=== PATIENT | male | born 1965 | race African-American/Black ===

== ENCOUNTER 2021-08-18 09:04 | Inpatient (IN) | payer SELFPAY ==
[~2021-08-18] VITALS: Ht 172.7 cm; Wt 151.6 kg
[2021-08-18 10:14] LABS: HEMOGLOBIN 12.2 g/dl (13.5-18.0); MEAN CELL VOLUME 87 fl (80.0-100.0); MEAN CORPUSCULAR HEMOGLOBIN 29 pg (27-31); MEAN CORPUSCULAR HGB CONC 33 g/dl (33.0-37.0); MEAN PLATELET VOLUME 8.5 fl (7.4-10.4); PLATELET COUNT 365 K/mm3 (130-400); RED BLOOD COUNT 4.23 M/mm3 (4.20-5.60); REDCELL DISTRIBUTION WIDTH-CV 13.1 % (11.5-14.5)
[2021-08-18 10:20] LABS: HEMATOCRIT 36.6 % (42.0-52.0)
[2021-08-18 10:32] LABS: ALANINE AMINOTRANSFERASE 36 U/L (0-55); ALBUMIN 2.9 gm/dL (3.5-5.0); ALKALINE PHOSPHATASE 76 U/L (40-150); ANION GAP 10 mmol/L (7-16); AST,SGOT 26 U/L (5-34); BILIRUBIN,TOTAL 0.4 mg/dL (0.2-1.2); BLOOD UREA NITROGEN 12 mg/dL (8-26); CALCIUM 8.9 mg/dL (8.4-10.2); CARBON DIOXIDE 24 mmol/L (22-29); CHLORIDE 98 mmol/L (98-107); CREATININE, serum 0.86 mg/dL (0.72-1.25); GLUCOSE 119 mg/dL (70-99); POTASSIUM 4.4 mmol/L (3.5-4.5); SODIUM 132 mmol/L (136-145); TOTAL PROTEIN 6.8 gm/dL (6.2-8.1)
[2021-08-18 10:40] LABS: EOSINOPHIL 7 % (0-4); LYMPHOCYTE 10 % (20.0-51.0); NEUTROPHILS 72 % (42.0-75.2); PLATELET ESTIMATE NORMAL (NORMAL); TROPONIN-I < 0.010 ng/mL (0.00-0.033)
[2021-08-18 14:41] LABS: PLEURAL FLUID RBC 113000 /mm3 (0-0); PLEURAL FLUID WBC 1153 /mm3
[2021-08-18 14:50] LABS: PLEURAL FLUID APPEARANCE BLOODY; PLEURAL FLUID COLOR RED
[2021-08-18 17:24] LABS: INR 1.2 (0.8-3.0); PROTHROMBIN TIME 13.8 SECONDS (9.7-12.8)
--- NOTE | 2021-08-18 17:44 | NUR ---
THE PATIENT WAS TRANSFERRED UP FROM ED. ASSESSMENT COMPLETED. PT DOES HAVE DISTENTION IN THE ABD WITH PAIN AND UNCOMFORTABILITY WHEN LAYING DOWN. DOCTOR LARES IS AT BEDSIDE DISCUSSING THE PLACEMENT OF A DRAIN. THE PATIENTS BILATERAL LOWER EXTREMETIES ARE EDEMETOUS. NO OTHER CONCERNS AT THIS TIME. IS AT BEDSIDE.
[2021-08-18 18:21] VITALS: BP 144/93; PULSE 92; TEMP 98.2
[2021-08-18 20:15] VITALS: BP 144/94; PULSE 103; TEMP 99.3
[2021-08-18 23:31] VITALS: BP 117/91; PULSE 99; TEMP 98
[2021-08-19] VITALS (14 sets, daily range): BP systolic 115–150; BP diastolic 48–96; PULSE 60–94; TEMP 97.4–98.5
--- NOTE | 2021-08-19 01:39 | NUR ---
AT 0115 PT USES CALL LIGHT, AIDE PROMPTLY ANSWERS, PT STATES "I NEED HELP WITH SOMETHING" AIDE RESPONDS " IS THERE ANYTHING WE CAN BRING YOU" PT REPLIES "NO I NEED HELP WITH SOMETHING." BOTH CHARGE NURSE AND AIDE ENTER PTS ROOM, PT A/OX4, INDEPENDENT, 02 2L NC, PT STATES UNPLEASANTLY AND WITH A SENSE OF URGENCY, "MOVE ALL OF THESE DRINKS AWAY FROM ME, I CANNOT HAVE ANYTHING TO DRINK AFTER MIDNIGHT," AIDE REPLIES "DO YOU KNOW WHAT PROCEDURE YOU HAVE TOMORROW?" PT REPLIES "THEY ARE GETTING FLUID OUT OF ME" AND PT PROCEEDS TO BATHROOM, INDEPENDENTLY. BOTH NURSE AND AIDE CONTINUE TO REMOVE PTS DRINKS FROM BEDSIDE. PT CONTINUES TO BATHROOM VISIBLY UPSET, NURSE AND AIDE DID NOT ENGAGE PT PT WAS UNPLEASANT ON ARRIVAL. BOTH AIDE AND CHARGE NURSE FEEL UNCOMFORTABLE PROVIDING CARE WHERE SITUATION CAN TURN HOSTILE. PTS NURSE INFORMED OF SITUATION.
--- NOTE | 2021-08-19 02:12 | NUR ---
ASSESSMENT COMPLETE FOR THIS SHIFT. PT RESTING IN BED LOOKING A BIT UNCOMFORTABLE. I ASKED PT WHAT WAS WRONG. PT STATED HE FELT LIKE THE BED SEEMED UNEVEN. BED DID LOOK UNEVEN, SO I SWITCHED OUT THE BED. PT STATED HE FELT MORE COMFORTABLE NOW. PT DENIED PAIN, PALPITATIONS OR DIZZINESS. PT'S BREATHS DID SEEM LABORED SO I CHECKED HIS O2 SATS. PT'S O2 SATS WAS AT 96% ON PULSE OX. I TOLD PT TO LET ME KNOW IF HE FELT LIKE HE HAD MORE DIFFICULTY BREATHING, WE COULD GIVE HIM A BIT OF OXYGEN. PT REQUESTED O2 FOR BEDTIME. RT CALLED, PT PLACED ON 2L FOR SLEEP. LATER TONIGHT, PT HAD A (I FEEL), MISUNDERSTANDING WITH STAFF. I LISTEN TO PT CONCERNS, APOLOGIZED FOR ANY MISUNDERSTANDING AND PASSED CONCERNS ON TO MY TWISTER DOFFER, WHO WROTE A NOTE, DOCUMENTING THE ISSUE. SCD'S PLACED ON PT FOR HIS VTE. PT NPO AT MIDNIGHT. PT STATES HE HAS NO OTHER NEEDS AT THIS TIME. CALL LIGHT WITHIN REACH.
[2021-08-19 06:37] LABS: BASO # 0.1 K/mm3 (0.0-0.2); BASO % 0.5 % (0.0-2.0); EOS # 0.5 K/mm3 (0.0-0.7); EOS % 4.9 % (0.0-4.0); GRAN # 6.6 K/mm3 (1.4-6.5); GRAN % 66.3 % (42.2-75.2); HEMOGLOBIN 12.2 g/dl (13.5-18.0); LYMPH # 1.4 K/mm3 (1.2-3.4); LYMPH % 13.8 % (20.0-51.0); MEAN CELL VOLUME 85 fl (80.0-100.0); MEAN CORPUSCULAR HEMOGLOBIN 29 pg (27-31); MEAN CORPUSCULAR HGB CONC 35 g/dl (33.0-37.0); MONO # 1.4 K/mm3 (0.1-0.6); MONO % 13.8 % (1.7-9.3); PLATELET COUNT 382 K/mm3 (130-400); RED BLOOD COUNT 4.16 M/mm3 (4.20-5.60); REDCELL DISTRIBUTION WIDTH-CV 13.1 % (11.5-14.5)
[2021-08-19 06:40] LABS: HEMATOCRIT 35.4 % (42.0-52.0)
[2021-08-19 06:54] LABS: ALBUMIN 2.4 gm/dL (3.5-5.0); BILIRUBIN,TOTAL 0.6 mg/dL (0.2-1.2); CALCIUM 8.5 mg/dL (8.4-10.2); CREATININE, serum 1.05 mg/dL (0.72-1.25); POTASSIUM 4.2 mmol/L (3.5-4.5); TOTAL PROTEIN 5.7 gm/dL (6.2-8.1)
--- NOTE | 2021-08-19 07:40 | NUR ---
PT RESTING QUIETLY IN BED PLAYING ON PHONE. PT REQUESTING ICE CHIPS AT THIS TIME. ICE CHIPS GOTTEN. PT STATES DOES NOT NEED ANYTHING ELSE AT THIS TIME. WILL CONTINUE TO MONITOR.
--- NOTE | 2021-08-19 09:47 | NUR ---
PT OFF FLOOR WITH SURGERY FOR PROCEDURE.
--- NOTE | 2021-08-19 10:51 | NUR ---
KRIS completed intake with patient. Patient states that he lives in [facility] with his Maribel [phone] also providing that she has been apointed as his DPOA-HC. Patient provides that he does not utilize DME and is independent with ADL's. Patient states that he currently does not have a PCP. List or physicans and numbers provided to patient to review for choice. Patient stated he would like to discuss with spouse, pharmacy of choice is [facility]. Patient provides that his plan is to return to his home upon DC and has no concerns with doing so. SW will continue to follow. DC plan: home
--- NOTE | 2021-08-19 18:21 | NUR ---
PT STATES THAT HE DOES NOT WANT ANYMORE PAIN MEDICAITONS ATT. "I AM COMFORTABLE, I DO NOT WANT ANYTHING ELSE." RATES PAIN "ABOUT A 1." WILL CONTINUE TO MONITOR.
--- NOTE | 2021-08-19 20:00 | NUR ---
CT to left chest to 20cm suction, 1200cc pink drainage in chamber, dressing with pinkish drainage, edges marked with black ink, no air leak noted, pt reports still some SOA with ambulating to restroom, remains on 2L O2 per NC. mild pain reported @this time. taking po, no N/V reported.
[2021-08-20 00:21] VITALS: BP 135/91; PULSE 79; TEMP 98.3
[2021-08-20 04:12] VITALS: BP 131/95; PULSE 72; TEMP 98.1
--- NOTE | 2021-08-20 07:20 | NUR ---
pt requested [place] for pain 03/06 @0115, then requested 2nd dose @0145, pt reports pain improved, up to restroom mult times this shift with assistance, CT to left chest to wall suction 20cm, dressing with old drainage present, no new output from CT. remains on 2L O2 per NC.
[2021-08-20 07:53] LABS: BASO % 0.4 % (0.0-2.0); EOS # 0.5 K/mm3 (0.0-0.7); EOS % 5.9 % (0.0-4.0); GRAN # 5.9 K/mm3 (1.4-6.5); GRAN % 64.3 % (42.2-75.2); HEMATOCRIT 40.2 % (42.0-52.0); HEMOGLOBIN 13.4 g/dl (13.5-18.0); LYMPH # 1.3 K/mm3 (1.2-3.4); LYMPH % 14.1 % (20.0-51.0); MEAN CELL VOLUME 87 fl (80.0-100.0); MEAN CORPUSCULAR HEMOGLOBIN 29 pg (27-31); MEAN CORPUSCULAR HGB CONC 33 g/dl (33.0-37.0); MEAN PLATELET VOLUME 8.6 fl (7.4-10.4); MONO # 1.4 K/mm3 (0.1-0.6); MONO % 14.9 % (1.7-9.3); PLATELET COUNT 427 K/mm3 (130-400); RED BLOOD COUNT 4.65 M/mm3 (4.20-5.60); REDCELL DISTRIBUTION WIDTH-CV 13.1 % (11.5-14.5)
[2021-08-20 07:56] VITALS: BP 115/92; PULSE 87; TEMP 98.7
[2021-08-20 08:06] LABS: CALCIUM 8.5 mg/dL (8.4-10.2); CREATININE, serum 0.95 mg/dL (0.72-1.25)
--- NOTE | 2021-08-20 10:19 | NUR ---
REASSESSED PTS PAIN LEVEL. PT IS SITTING UP IN BED. ALERT AND AWAKE, PLAYING ON PHONE. PT STATES THAT HE IS NOT HAVING ANY PAIN ATT. "I AM COOL, IF I HAVE TO GIVE IT A NUMBER THEN MAYBE A 2." WILL CONTINUE TO MONITOR.
[2021-08-20 12:00] VITALS: BP 130/85; PULSE 83; TEMP 976
--- NOTE | 2021-08-20 12:58 | NUR ---
PT UP IN BED. GETTING READY TO EAT LUNCH. PT STATES THAT HE DOES NOT NEED ANY PAIN MEDICATIONS AT THIS TIME. "I WANT TO EAT RIGHT NOW." SCDS REAPPLIED. PT WAS UP TO BATHROOM. STATES THAT HE WAS ABLE TO MOVE "SOME GAS BUT NO POOP." REQUESTS TWO POPS AND A CUP OF ICE. ITEMS REQUESTED GIVEN TO PATIENT. CALL LIGHT WITHIN REACH. WILL CONTIUNE TO MONITOR.
--- NOTE | 2021-08-20 13:05 | NUR ---
IN PTS ROOM WITH . INFOMRED DR THAT PT HAS BEEN TAKING PRN NORCO AND HAS NOT AJ ABLE TO MOVE BOWELS. ASKED FOR A STOOL SOFTNER. DR VOICED AGREEMENT.
[2021-08-20 15:30] VITALS: BP 124/80; PULSE 81; TEMP 98.4
--- NOTE | 2021-08-20 18:37 | NUR ---
PT SITTING UP IN BED, WATCHING TV. STATES THAT HE IS "COOL." IS NOT REQUESTING ANY PAIN MEDICATIONS AT THIS TIME. REQUESTS SOCKS, SPRITE AND CUP OF ICE. ITEMS WERE GOTTEN FOR PATIENT. NO OTHER NEEDS STATED AT THIS TIME. PT PERFORMED INCENTIVE SPIROMETER. SCDS ARE ON. CALL LIGHT IS WITHIN REACH.
[2021-08-20 20:26] VITALS: BP 136/86; PULSE 91; TEMP 98.2
--- NOTE | 2021-08-20 23:40 | NUR ---
ASSESSMENT COMPLETE FOR THIS SHIFT. PT RESTING IN BED WATCHING THE BASKETBALL GAME. PT COMPLAINS OF PAIN. NORCO GIVEN FOR PAIN. PT DENIES PALPITATIONS, SOB, N,V,D OR DIZZINESS. PT'S DRESSING SHOWED SOME DRAINAGE. DAYSHIFT RN PASSED ON DRESSING SEEN BY PROVIDER AND PROVIDER SAID DRESSING WAS FINE. WILL CONTINUE TO MONITOR. I HELPED PT UP TO THE RESTROOM. I FILL PT'S WATER JUG. PT EXPRESSED NO OTHER NEEDS AT THIS TIME. CALL LIGHT WITHIN REACH.
[2021-08-21 00:43] VITALS: BP 142/92; PULSE 75; TEMP 97.8
[2021-08-21 04:05] VITALS: BP 136/94; PULSE 80; TEMP 98.2
--- NOTE | 2021-08-21 06:40 | NUR ---
PT EXPRESSED CONCERNS ABOUT HIS CARE GIVEN BY THE [employer] OPERATOR'S. PT COMPLAINED ABOUT [employer] FORGETTING TO FILL HIS WATER JUG, WHEN HE WAS TOLD THEY WOULD BE RIGHT BACK; PT FELT LIKE HE WAS LEFT ON THE TOILET FOR LONG PERIODS OF TIME; ETC. I LISTEN TO PT, APOLOGIZED AND EXPLAINED WE HAVE MANY PATIENTS TONIGHT, AND TRIED TO TAKE OVER ALL OF PT'S CARE FOR THE REST OF THE NIGHT. CALL LIGHT WITHIN REACH.
--- NOTE | 2021-08-21 07:00 | NUR ---
Report received from KAI Singh. PT in bed resting, doing well, feels he can breath much better but concerned about care from some staff overnight, very happy with Samantha.
[2021-08-21 07:18] LABS: BASO % 0.5 % (0.0-2.0); EOS # 0.4 K/mm3 (0.0-0.7); EOS % 4.8 % (0.0-4.0); GRAN # 6.3 K/mm3 (1.4-6.5); HEMOGLOBIN 12.9 g/dl (13.5-18.0); LYMPH # 1.1 K/mm3 (1.2-3.4); LYMPH % 12.1 % (20.0-51.0); MEAN CELL VOLUME 86 fl (80.0-100.0); MEAN CORPUSCULAR HEMOGLOBIN 29 pg (27-31); MEAN CORPUSCULAR HGB CONC 34 g/dl (33.0-37.0); MEAN PLATELET VOLUME 8.4 fl (7.4-10.4); MONO % 11.1 % (1.7-9.3); PLATELET COUNT 423 K/mm3 (130-400); REDCELL DISTRIBUTION WIDTH-CV 12.7 % (11.5-14.5)
[2021-08-21 07:28] LABS: CALCIUM 8.5 mg/dL (8.4-10.2); CREATININE, serum 0.97 mg/dL (0.72-1.25); POTASSIUM 4.1 mmol/L (3.5-4.5)
[2021-08-21 08:00] VITALS: BP 150/94; PULSE 78; TEMP 98
--- NOTE | 2021-08-21 10:04 | NUR ---
Assessment charted. PT up to bathroom. Doing well, PRN pain meds given for pain at chest tube insertion site that is manageable. Pt states he feels less short of breath and would really like to be able to go home soon. Thora site DANA with bandaid and chest tube stie to L chest has some drainage shadowing dressing but no obvious bleeding. Chest tube to water seal. Pt titrated off 02. INT to RH. WIll continue to monitor.
[2021-08-21 12:00] VITALS: BP 137/79; PULSE 89; TEMP 98.3
[2021-08-21 15:45] VITALS: BP 113/85; PULSE 95; TEMP 98.1
--- NOTE | 2021-08-21 18:23 | NUR ---
Pt has done well over shift. Resting in bed, up to bathroom often, chest tube output only 40 mls over entire shift and documented. PRN pain meds given q4hr per request. Will give report to nightshift nurse who will resume care.
[2021-08-21 19:56] VITALS: BP 117/81; PULSE 98; TEMP 98.2
[2021-08-22 01:32] VITALS: BP 150/95; PULSE 61; TEMP 98.1
[2021-08-22 04:52] VITALS: BP 139/88; PULSE 85; TEMP 98.1
--- NOTE | 2021-08-22 05:30 | NUR ---
ASSESSMENT COMPLETE FOR THIS SHIFT. PT RESTING IN BED WITH HIS BY HIS SIDE. PT COMPLAINS MOSTLY OF BACK PAIN AND SOME LEFT SIDED CHEST PAIN. PT GIVEN NORCO FOR PAIN. PAIN MEDICATION HELPED FOR A WHILE. PT DENIES PALPITATIONS, SOB, N,V OR DIZZINESS. PT HAD 80ML OUT OF CHEST TUBE THIS SHIFT. PT EXPRESSED NO OTHER NEEDS THIS SHIFT. CALL LIGHT WITHIN REACH.
--- NOTE | 2021-08-22 07:00 | NUR ---
Report received from KAI Singh. PT in bed resting, doing well, denies needs, will jacky schmitz.
[2021-08-22 08:27] VITALS: BP 130/83; PULSE 103; TEMP 98.5
--- NOTE | 2021-08-22 11:03 | NUR ---
Assessmetn charted. Pt in bed resting, doing well, up in chair ad sabino, ready for chest tube to be removed. Denies nees, PRN pain meds given for chest tube pain. INT to , will continue to monitor.
[2021-08-22 12:00] VITALS: BP 124/80; PULSE 98; TEMP 98.4
[2021-08-22] MEDS ORDERED: NORCO 325 MG-51 TAB PO (14:41)
[2021-08-22 15:05] VITALS: BP 133/78; PULSE 103; TEMP 98
--- NOTE | 2021-08-22 17:07 | NUR ---
Discharge teaching completed at this time. PT received dishcarge packet, reviewed f/u appointments, new meds, restrictions with activity and with showering. PT going home with supplies to change dressing if needed to prevous chest tube site. INT dc'd tip intact. Pt left with all bleonings, escorted out via w/c with medical staff. Family to drive home, criteria met.
[2021-08-23 10:59] LABS: BODY FLUID PH (AMS) SEE PCI FOR RESULTS
== END 2021-08-22 16:30 | disposition home or self-care (01) | DRG 186 ==
LOC: COL.ER 09:04 → MEDICAL 14:24
PROVIDERS: Internal Medicine Pulmonary Disease; Personal Emergency Response Attendant; Physician Assistant; ADMIT Student in an Organized Health Care Education/Training Program
PROC: 0W9B3ZZ Drainage of Left Pleural Cavity, Percutaneous Approach (ICD-10-PCS; principal; 2021-08-18)
PROC: 0W9B00Z Drainage of Left Pleural Cavity with Drainage Device, Open Approach (ICD-10-PCS; 2021-08-19)
DX: J90 Pleural effusion, not elsewhere classified (principal); J96.01 Acute respiratory failure with hypoxia; E87.1 Hypo-osmolality and hyponatremia; J98.11 Atelectasis; R04.89 Hemorrhage from other sites in respiratory passages; Z20.822 Contact with and (suspected) exposure to COVID-19; R00.0 Tachycardia, unspecified; F17.210 Nicotine dependence, cigarettes, uncomplicated
CPT/HCPCS: OP; 99222-AI; 99231-AI; 99232-AI; 99233-AI; 99239; A7041; J1650; J1940; J2270; J2405; J2704; J3010; Q9967